=== PATIENT | female | born 1940 | race Two or more races ===

== ENCOUNTER 2022-09-21 10:58 | Emergency (ER) | payer OTHER ==
[~2022-09-21] VITALS: Ht 165.1 cm; Wt 79.4 kg
[2022-09-21] MEDS ORDERED: PLAVIX75 MG (11:35)
[2022-09-21] MEDS ORDERED: PREDNISONE20 MG (11:36)
[2022-09-21] MEDS ORDERED: MAXIMUM D3325 MCG (11:36)
[2022-09-21] MEDS ORDERED: PROTONIX40 M1 (11:37)
[2022-09-21] MEDS ORDERED: PROPRANOLOL HCL20 MG (11:37)
[2022-09-21] MEDS ORDERED: PEPCID AC20 MG (11:37)
[2022-09-21] MEDS ORDERED: DIOVAN160 M1 (11:37)
[2022-09-21] MEDS ORDERED: CRESTOR5 MG (11:38)
[2022-09-21] MEDS ORDERED: AMIODARONE HCL100 MG (11:38)
[2022-09-21] MEDS ORDERED: TAMS0.4C PO (16:52)
== END 2022-09-21 16:58 | disposition home or self-care (01) ==
LOC: ER 10:58
DX: N39.0 Urinary tract infection, site not specified (principal); K46.9 Unspecified abdominal hernia without obstruction or gangrene; Z88.6 Allergy status to analgesic agent; R10.9 Unspecified abdominal pain; K44.9 Diaphragmatic hernia without obstruction or gangrene

== ENCOUNTER 2023-02-23 16:39 | Emergency (ER) | payer OTHER ==
[~2023-02-23] VITALS: Ht 152.4 cm; Wt 83.5 kg
[~2023-02-23 16:39] MED LIST: AMIODARONE HCL100 MG; CRESTOR5 MG; DIOVAN160 M1; MAXIMUM D3325 MCG; PEPCID AC20 MG; PLAVIX75 MG; PREDNISONE20 MG; PROPRANOLOL HCL20 MG; PROTONIX40 M1; TAMS0.4C PO
[2023-02-23] MEDS ORDERED: CLOPIDOGREL BIS75 MG (17:08)
== END 2023-02-23 22:34 | disposition home or self-care (01) ==
LOC: ER 16:39
DX: S82.842A Displaced bimalleolar fracture of left lower leg, initial encounter for closed fracture (principal); X50.9XXA Other and unspecified overexertion or strenuous movements or postures, initial encounter; Y93.89 Activity, other specified; Y92.89 Other specified places as the place of occurrence of the external cause; Z88.6 Allergy status to analgesic agent

== ENCOUNTER 2023-04-26 15:44 | Inpatient (IN) | payer OTHER ==
[~2023-04-26] VITALS: Ht 165.1 cm; Wt 82.6 kg
[~2023-04-26 15:44] MED LIST changes: +CLOPIDOGREL BIS75 MG
--- NOTE | 2023-04-26 15:59 | NUR ---
PTE ALERTA Y ORIENTADA X3. REFEIRE TENER DOLOR E INFLAMACION EN TOBILLO RENE DONDE FUE OPERADA POR DR. KELLEY EN STEVEN. EN ADDICION DE DESPERTO CON JULIA RENE KING.
[2023-04-26 19:14] LABS: HEMATOCRIT 46.6 % (36.0-45.00); HEMOGLOBIN 15.9 g/dL (12.0-15.00); MEAN CELL VOLUME 94.5 fL (80.00-100.00); MEAN CORPUSCULAR HEMOGLOBIN 32.3 pg (27.00-32.0); MEAN CORPUSCULAR HGB CONC 34.2 g/dl (32.0-36.0); PLATELET COUNT 224 K/uL (150-450); RED BLOOD COUNT 4.93 M/uL (4.00-6.00)
[2023-04-26 19:18] LABS: ERYTHROCYTE SEDIMENTATION RATE 33 mm/hr
--- NOTE | 2023-04-26 19:26 | NUR ---
PACIENTE EVALUADO POR DR. FERGUSON QUIEN ORDENA TRATAMIENTO. SE ORIENTA PACIENTE SOBRE TRATAMIENTO. SE CAITIE MUESTRAS DE LABORATORIO BAJO MEDIDAS ASEPTICAS. SE MANTIENE PACIENTE EN ESPERA DE RESULTADOS DE LABORATORIO.
[2023-04-26 19:31] LABS: URINE APPEARANCE Clear; URINE BILIRRUBIN Negative (NEGATIVE); URINE BLOOD Negative; URINE COLOR Yellow; URINE GLUCOSE Negative (NEGATIVE); URINE LEUKOCYTE Negative; URINE NITRATE Negative; URINE PROTEIN Negative (NEGATIVE); URINE UROBILINOGEN 0.2 E.U./dl
[2023-04-26 19:35] LABS: URINE BACTERIA 70.5 uL (0.0-1933); URINE EPITHELIAL CELLS 2.7 uL (0.0-38.8); URINE RBC 6.1 uL (0.0-20.8)
[2023-04-26 19:37] LABS: URINE WBC 1.5 uL (0.0-23.2)
[2023-04-26 19:58] LABS: CALCIUM 9.4 mg/dL (8.5-10.1); CREATININE SERUM 0.92 mg/dL (0.55-1.02); GFR 58.3; POTASSIUM 4.48 mEq/L (3.5-5.1)
[2023-04-26 20:02] LABS: C-REACTIVE PROTEIN 2.59 MG/DL (0.00-0.29)
[2023-04-27 08:02] LABS: INR 1.02; PARTIAL THROMBOPLASTIN TIME 27.9 SECONDS (22.0-34.0); PROTHROMBIN TIME 10.7 SECONDS (9.0-11.5)
[2023-04-27 08:13] LABS: ALBUMIN 3.4 gm/dL (3.4-5.0); BILIRUBIN TOTAL 0.71 mg/dL (0.3-1.2); BILIRUBIN,CONJUGATED 0.22 mg/dL (0.0-0.2); BILIRUBIN,UNCONJUGATED 0.49 mg/dL (0.0-0.6); CALCIUM 8.8 mg/dL (8.5-10.1); CHOL HDL RATIO 4.7 (0-5.0); CREATININE SERUM 0.82 mg/dL (0.55-1.02); GFR 66.58; POTASSIUM 4.21 mEq/L (3.5-5.1); TOTAL PROTEIN 6.4 gm/dL (6.4-8.2)
[2023-04-27 08:24] LABS: PH,URINE 6.5 (5.0-8.0); URINE APPEARANCE Clear; URINE BILIRRUBIN Negative (NEGATIVE); URINE BLOOD Negative; URINE COLOR Yellow; URINE GLUCOSE Negative (NEGATIVE); URINE LEUKOCYTE Small; URINE NITRATE Negative; URINE PROTEIN Negative (NEGATIVE)
[2023-04-27 08:25] LABS: URINE BACTERIA 61.7 uL (0.0-1933); URINE EPITHELIAL CELLS 7.5 uL (0.0-38.8); URINE RBC 18.5 uL (0.0-20.8); URINE WBC 43.8 uL (0.0-23.2)
[2023-04-27 08:29] LABS: C-REACTIVE PROTEIN 2.22 MG/DL (0.00-0.29)
[2023-04-27 09:11] LABS: HEMATOCRIT 41.1 % (36.0-45.00); HEMOGLOBIN 14.2 g/dL (12.0-15.00); MEAN CELL VOLUME 94.9 fL (80.00-100.00); MEAN CORPUSCULAR HEMOGLOBIN 32.7 pg (27.00-32.0); MEAN CORPUSCULAR HGB CONC 34.5 g/dl (32.0-36.0); PLATELET COUNT 191 K/uL (150-450); RED BLOOD COUNT 4.33 M/uL (4.00-6.00); RED CELL DISTRIBUTION WIDTH 13.8 % (11.5-14.5)
[2023-04-27 09:58] LABS: ERYTHROCYTE SEDIMENTATION RATE 28 mm/hr
[2023-04-28 19:55] LABS: PH,URINE 7.5 (5.0-8.0); URINE APPEARANCE Clear; URINE BILIRRUBIN Negative (NEGATIVE); URINE BLOOD Large; URINE COLOR Yellow; URINE GLUCOSE Negative (NEGATIVE); URINE LEUKOCYTE Trace; URINE NITRATE Negative; URINE PROTEIN Trace (NEGATIVE); URINE UROBILINOGEN 0.2 E.U./dl
[2023-04-28 19:59] LABS: URINE RBC 420.1 uL (0.0-20.8); URINE WBC 8.1 uL (0.0-23.2)
[2023-04-28 20:07] LABS: URINE EPITHELIAL CELLS 0.4 uL (0.0-38.8)
== END 2023-04-29 16:14 | DRG 603 ==
LOC: ER 15:44 → SURG 23:27 → MEDI 23:27 → SURG 04-27 01:52
PROVIDERS: Emergency Medicine; General Practice; ADMIT Specialist; ATTEND Specialist
PROC: B54CZZZ Ultrasonography of Left Lower Extremity Veins (ICD-10-PCS; principal; 2023-04-26)
DX: L03.116 Cellulitis of left lower limb (principal); I10 Essential (primary) hypertension; E78.5 Hyperlipidemia, unspecified; Z86.718 Personal history of other venous thrombosis and embolism; I73.9 Peripheral vascular disease, unspecified; I35.1 Nonrheumatic aortic (valve) insufficiency

== ENCOUNTER 2023-10-06 10:06 | Emergency (ER) | payer OTHER ==
[~2023-10-06] VITALS: Ht 162.6 cm; Wt 81.6 kg
[2023-10-06] MEDS ORDERED: ARICEPT5 MG (10:28)
[2023-10-06] MEDS ORDERED: INDERAL XL80 MG (10:29)
[2023-10-06] MEDS ORDERED: MIRTAZAPINE7.5 MG (10:31)
[2023-10-06 12:17] LABS: ERYTHROCYTE SEDIMENTATION RATE 11 mm/hr; HEMATOCRIT 48.6 % (36.0-45.00); HEMOGLOBIN 16.7 g/dL (12.0-15.00); MEAN CORPUSCULAR HEMOGLOBIN 31.6 pg (27.00-32.0); MEAN CORPUSCULAR HGB CONC 34.3 g/dl (32.0-36.0); PLATELET COUNT 209 K/uL (150-450); RED BLOOD COUNT 5.28 M/uL (4.00-6.00); RED CELL DISTRIBUTION WIDTH 14.8 % (11.5-14.5)
[2023-10-06 12:40] LABS: ALBUMIN 4.2 gm/dL (3.4-5.0); BILIRUBIN TOTAL 1.14 mg/dL (0.3-1.2); CALCIUM 9.8 mg/dL (8.5-10.1); CREATININE SERUM 1.03 mg/dL (0.55-1.02); GFR 51.05; GLOBULINA 3.9 G/DL (2.4-3.5); POTASSIUM 3.58 mEq/L (3.5-5.1); TOTAL PROTEIN 8.1 gm/dL (6.4-8.2)
[2023-10-06] MEDS ORDERED: CEFTRIAXONE SODIUM 2,000 MG VIAL IV STA (16:10)
== END 2023-10-06 16:58 | disposition home or self-care (01) ==
LOC: ER 10:06
PROVIDERS: General Practice
DX: R10.32 Left lower quadrant pain (principal); Z88.6 Allergy status to analgesic agent; Z91.018 Allergy to other foods; J06.9 Acute upper respiratory infection, unspecified; Z20.822 Contact with and (suspected) exposure to COVID-19; N20.0 Calculus of kidney; K44.9 Diaphragmatic hernia without obstruction or gangrene; K57.30 Diverticulosis of large intestine without perforation or abscess without bleeding
CPT/HCPCS: 36415; 96365; 99284; J0696; Q9965

== ENCOUNTER 2024-09-06 12:16 | Inpatient (IN) | payer OTHER ==
[~2024-09-06] VITALS: Ht 165.1 cm; Wt 74.8 kg
[~2024-09-06 12:16] MED LIST changes: +ARICEPT5 MG; +INDERAL XL80 MG; +MIRTAZAPINE7.5 MG
--- NOTE | 2024-09-06 12:46 | NUR ---
PTE ALERTA Y ORIENTADA X3. EN COMPANIA DE FAMILIAR QUIEN REFIERE QUE PTE FUE ARUNADA POR WALKER MELVIN. PTE PRESENTA ROBERTH EN ANTEBRAZO RENE Y COLORACION E HINCHAZON EN TODO EL BRAZO. PTE REFIERE DOLOR EN EL MISMO
--- NOTE | 2024-09-06 13:11 | NUR ---
PTE EVALADA POR LA GARO DOMINGOIN ORDENA TRATAMIENTO LA CUAL SE EJECUTA. POR MS.DEL FRANK LLOYD . SE MANTIENE BAJO OBSERVACION.
[2024-09-06] MEDS ORDERED: FAMOtidine 10 MG/ML (4ML VIAL) IV ONE (13:15)
[2024-09-06] MEDS ORDERED: VANCOMYCIN HCL 1,000 MG VIAL IV ONE (13:15)
[2024-09-06] MEDS ORDERED: CEFTRIAXONE SODIUM 1,000 MG VIAL IM ONE (14:00)
[2024-09-06 14:16] LABS: HEMATOCRIT 46.5 % (36.0-45.00); HEMOGLOBIN 15.9 g/dL (12.0-15.00); MEAN CELL VOLUME 94.8 fL (80.00-100.00); MEAN CORPUSCULAR HEMOGLOBIN 32.4 pg (27.00-32.0); MEAN CORPUSCULAR HGB CONC 34.2 g/dl (32.0-36.0); PLATELET COUNT 214 K/uL (150-450); RED CELL DISTRIBUTION WIDTH 14.7 % (11.5-14.5)
[2024-09-06 14:16] LABS: URINE APPEARANCE Clear; URINE BILIRRUBIN Negative (NEGATIVE); URINE BLOOD Negative; URINE COLOR Yellow; URINE GLUCOSE Negative (NEGATIVE); URINE KETONE Negative (NEGATIVE); URINE LEUKOCYTE Trace; URINE NITRATE Negative; URINE PROTEIN Negative (NEGATIVE)
[2024-09-06 14:28] LABS: URINE BACTERIA 135.7 uL (0.0-1933); URINE EPITHELIAL CELLS 15.1 uL (0.0-38.8); URINE RBC 5.7 uL (0.0-20.8)
[2024-09-06 14:38] LABS: ERYTHROCYTE SEDIMENTATION RATE 16 mm/hr
[2024-09-06 14:40] LABS: PARTIAL THROMBOPLASTIN TIME 27.1 SECONDS (22.0-34.0); PROTHROMBIN TIME 10.9 SECONDS (9.0-11.5)
[2024-09-06 16:06] LABS: ALBUMIN 4.1 gm/dL (3.4-5.0); BILIRUBIN TOTAL 0.6 mg/dL (0.3-1.2); CALCIUM 9.7 mg/dL (8.5-10.1); CREATININE SERUM 0.99 mg/dL (0.55-1.02); GFR 53.31; GLOBULINA 3.7 G/DL (2.4-3.5); POTASSIUM 4.1 mEq/L (3.5-5.1); TOTAL PROTEIN 7.8 gm/dL (6.4-8.2)
[2024-09-06 16:12] LABS: C-REACTIVE PROTEIN 0.93 MG/DL (0.00-0.29)
[2024-09-06] MEDS ORDERED: ACETAMINOPHEN 500 MG GEL..CAP PO PRN (18:45)
[2024-09-06] MEDS ORDERED: DONEPEZIL HCL 5 MG TABLET PO SCH (18:45)
[2024-09-06] MEDS ORDERED: CEFTRIAXONE SODIUM 2,000 MG in 0.9 % SODIUM CHLORIDE 100 ML IV SCH (18:45)
[2024-09-06] MEDS ORDERED: 0.9 % SODIUM CHLORIDE 1,000 ML IV SCH (18:45)
[2024-09-07 01:19] VITALS: BP 149/71; O2SAT 97
[2024-09-07 08:20] VITALS: BP 107/68
[2024-09-07] MEDS ORDERED: LOSARTAN POTASSIUM 25 MG TABLET PO SCH (09:00)
[2024-09-07] MEDS ORDERED: ENOXAPARIN SODIUM 40 MG/0.4 ML SYRINGE SUBCUTANEO SCH (09:00)
[2024-09-07] MEDS ORDERED: PROPRANOLOL HCL 20 MG TABLET PO SCH (09:00)
[2024-09-07] MEDS ORDERED: AMIODARONE HCL 200 MG TABLET PO SCH (09:00)
[2024-09-07] MEDS ORDERED: FAMOTIDINE/PF 20 MG in 0.9 % SODIUM CHLORIDE 8 ML IV PUSH SCH (09:00)
[2024-09-07] MEDS ORDERED: MEROPENEM 500 MG/VIAL VIAL IV SCH (12:00)
[2024-09-07 16:57] VITALS: BP 145/67; O2SAT 97
[2024-09-08 08:00] VITALS: BP 152/71; O2SAT 97
[2024-09-08] MEDS ORDERED: DIPHTH,PERTUSS(ACELL),TET VAC 0.5 ML SYRINGE IM NR (09:00)
[2024-09-08] MEDS ORDERED: PATIENTS OWN MEDICATION (MEDICAMENTO EN PISO) PO SCH ×3 (09:00→17:00)
[2024-09-08] MEDS ORDERED: CEFTRIAXONE SODIUM 2,000 MG in 0.9 % SODIUM CHLORIDE 100 ML IV SCH (09:00)
[2024-09-08] MEDS ORDERED: CLOPIDOGREL BISULFATE 75 MG TABLET PO NR (11:00)
[2024-09-08] MEDS ORDERED: PANTOPRAZOLE SODIUM 40 MG/VIAL VIAL IV PUSH NR (11:00)
[2024-09-08] MEDS ORDERED: AMIODARONE HCL 200 MG TABLET PO NR (11:00)
[2024-09-08 16:58] VITALS: BP 160/85; O2SAT 96
[2024-09-08] MEDS ORDERED: DONEPEZIL HCL 10 MG TABLET PO SCH (17:00)
[2024-09-08] MEDS ORDERED: PROPRANOLOL HCL 20 MG TABLET PO SCH (17:00)
[2024-09-08] MEDS ORDERED: GABAPENTIN 300 MG CAPSULE PO SCH (21:00)
[2024-09-09 02:02] VITALS: BP 137/77; O2SAT 95
[2024-09-09 08:35] VITALS: BP 116/72; O2SAT 98
[2024-09-09] MEDS ORDERED: CLOPIDOGREL BISULFATE 75 MG TABLET PO SCH (09:00)
[2024-09-09] MEDS ORDERED: PANTOPRAZOLE SODIUM 40 MG/VIAL VIAL IV PUSH SCH (09:00)
[2024-09-09] MEDS ORDERED: AMIODARONE HCL 200 MG TABLET PO SCH (09:00)
[2024-09-09] MEDS ORDERED: CEFTRIAXONE SODIUM 2,000 MG VIAL IM ONE (10:15)
== END 2024-09-09 10:21 | disposition home or self-care (01) | DRG 605 ==
LOC: ER 12:18 → MEDI 18:55
PROVIDERS: General Practice; ADMIT Internal Medicine; ATTEND Internal Medicine
DX: S40.812A Abrasion of left upper arm, initial encounter (principal); L03.114 Cellulitis of left upper limb; I10 Essential (primary) hypertension; G30.9 Alzheimer's disease, unspecified; F02.80 Dementia in other diseases classified elsewhere, unspecified severity, without behavioral disturbance, psychotic disturbance, mood disturbance, and anxiety; I48.91 Unspecified atrial fibrillation

== ENCOUNTER 2024-11-21 14:55 | Emergency (ER) | payer OTHER ==
[~2024-11-21] VITALS: Ht 167.6 cm; Wt 81.6 kg
[2024-11-21] MEDS ORDERED: 0.9 % SODIUM CHLORIDE 1,000 ML IV ONE (16:30)
[2024-11-21] MEDS ORDERED: HYOSCYAMINE SULFATE 0.125 MG TAB.SUBL SL ONE (16:30)
[2024-11-21] MEDS ORDERED: FAMOtidine 10 MG/ML (4ML VIAL) IV ONE (16:30)
[2024-11-21 17:37] LABS: BASO % 0.3 % (0.1-1.2); EOS # 0.07 (0.04-0.54); EOS % 1.2 % (0.7-7.0); HEMATOCRIT 52.7 % (34.1-44.9); HEMOGLOBIN 16.9 g/dL (11.2-15.7); LYMPH # 1.51 (1.18-3.74); LYMPH % 26.2 % (19.3-53.1); MEAN CORPUSCULAR HEMOGLOBIN 30.3 pg (25.6-32.2); MONO # 0.64 (0.24-0.82); MONO % 11.1 % (4.7-12.5); NEUT # 3.51 (1.56-6.13); PLATELET COUNT 199 K/uL (163-369); RED BLOOD COUNT 5.57 M/uL (3.93-5.22); RED CELL DISTRIBUTION WIDTH 12.9 % (11.6-14.4)
[2024-11-21 18:18] LABS: ALBUMIN 3.9 gm/dL (3.4-5.0); BILIRUBIN TOTAL 0.8 mg/dL (0.3-1.2); CALCIUM 9.1 mg/dL (8.5-10.1); CREATININE SERUM 1.05 mg/dL (0.55-1.02); GFR 49.81; GLOBULINA 3.8 G/DL (2.4-3.5); POTASSIUM 3.93 mEq/L (3.5-5.1); TOTAL PROTEIN 7.7 gm/dL (6.4-8.2)
[2024-11-21 18:25] LABS: INR 1.8; PARTIAL THROMBOPLASTIN TIME 30.2 SECONDS (22.0-34.0)
[2024-11-21 18:27] LABS: PROTHROMBIN TIME 18.8 SECONDS (9.0-11.5)
[2024-11-21 19:34] LABS: PH,URINE 5.5 (5.0-8.0); URINE APPEARANCE Clear; URINE BILIRRUBIN Negative (NEGATIVE); URINE BLOOD Negative; URINE COLOR Yellow; URINE GLUCOSE Negative (NEGATIVE); URINE KETONE Negative (NEGATIVE); URINE LEUKOCYTE Trace; URINE NITRATE Negative; URINE PROTEIN Negative (NEGATIVE); URINE UROBILINOGEN 0.2 E.U./dl
[2024-11-21 19:35] LABS: URINE BACTERIA 100.3 uL (0.0-1933); URINE EPITHELIAL CELLS 6.1 uL (0.0-38.8); URINE RBC 2.5 uL (0.0-20.8); URINE WBC 8.6 uL (0.0-23.2)
[2024-11-21] MEDS ORDERED: TAMS0.4C PO (22:23)
[2024-11-21] MEDS ORDERED: NORFLEX100MG PO (22:23)
[2024-11-21] MEDS ORDERED: BACTRIM DS TAB1 EACH PO (22:23)
[2024-11-21] MEDS ORDERED: PEPCID AC20 MG PO (22:23)
== END 2024-11-21 22:53 | disposition home or self-care (01) ==
LOC: ER 15:00
PROVIDERS: General Practice
DX: N20.0 Calculus of kidney (principal); K44.9 Diaphragmatic hernia without obstruction or gangrene; K76.89 Other specified diseases of liver; K42.9 Umbilical hernia without obstruction or gangrene; M51.369 Other intervertebral disc degeneration, lumbar region without mention of lumbar back pain or lower extremity pain; I10 Essential (primary) hypertension; Z88.6 Allergy status to analgesic agent; Z91.018 Allergy to other foods; Z85.3 Personal history of malignant neoplasm of breast; K57.30 Diverticulosis of large intestine without perforation or abscess without bleeding
CPT/HCPCS: 36415; 74176; 96365; 96366; 99283; J3490